=== PATIENT | female | born 1960 | race Caucasian/White ===

== ENCOUNTER 2017-03-05 14:36 | Emergency (ER) | payer SELFPAY ==
[2017-03-05] MEDS ORDERED: Fluorescein Opthalmic Strip ONE (14:51)
[2017-03-05] MEDS ORDERED: Proparacaine 0.5% Opth 15 ML BOT ONE (14:51)
[2017-03-05] MEDS ORDERED: Ibuprofen 800 MG TAB ONE (15:14)
== END 2017-03-05 15:15 | disposition home or self-care (01) ==
LOC: ERS 14:36
DX: S05.02XA Injury of conjunctiva and corneal abrasion without foreign body, left eye, initial encounter (principal); I10 Essential (primary) hypertension; Z79.899 Other long term (current) drug therapy; W22.8XXA Striking against or struck by other objects, initial encounter; Y93.H2 Activity, gardening and landscaping
CPT/HCPCS: 99283

== ENCOUNTER 2020-11-24 14:09 | Inpatient (IN) | payer SELFPAY ==
[~2020-11-24 14:09] MED LIST: Iopamidol-370 76% 500 ML 1 ML ONE; Sodium Chloride 0.9% 1,000 ML BAG ONE
[2020-11-24 14:33] LABS: #Eosinphils 0.1 thou/uL (0.0-0.7); #Monocytes 0.6 thou/uL (0.11-0.59); #Neutrophils 8.2 thou/uL (1.40-6.50); %Basophils 0.2 % (0.0-1.0); %Eosinophils 0.9 % (0.0-10.0); %Lymphocytes 18.4 % (21.0-51.0); %Monocytes 5.1 % (0.0-10.0); %Neutrophils 75.3 % (42.0-75.0); Hemoglobin 13.9 g/dL (12.0-16.0); Mean Corpuscular HGB CONC 34.8 g/dL (32.0-36.0); Mean Corpuscular Hemoglobin 31.1 pg (27.0-31.0); Mean Corpuscular Volume 89.5 fL (78.0-98.0); Mean Platelet Volume 7.3 fL (7.4-10.4); Platelet Count 337 thou/uL (130-400); RBC Distribution Width 12.8 % (11.5-14.5); Red Blood Cell (RBC) Count 4.48 mill/uL (4.20-5.40); White Blood Cell (WBC) Count 10.9 thou/uL (4.8-10.8)
[2020-11-24 14:42] LABS: Prothrombin Time 13.3 sec (12.0-14.7)
[2020-11-24] MEDS ORDERED: Ondansetron PF 4 MG/2 ML Vial ONE ×3 (14:42→22:15)
[2020-11-24] MEDS ORDERED: Morphine 2 MG/ML VIAL ONE ×3 (14:42→17:13)
[2020-11-24 14:50] LABS: PTT 176.9 sec (22.9-36.1)
[2020-11-24 14:53] LABS: ALT (SGPT) 21 U/L (8-55); AST (SGOT) 25 U/L (5-34); Albumin 4.1 g/dL (3.5-5.0); Alkaline Phosphatase 111 U/L (40-110); Anion Gap 12 mmol/L (10-20); BUN (Urea Nitrogen) 10 mg/dL (9.8-20.1); Bilirubin, Total 0.6 mg/dL (0.2-1.2); CK (CPK) 181 U/L (29-168); Calc. Creatinine Clearance 0 mL/min (70-130); Calcium 9.5 mg/dL (7.8-10.44); Carbon Dioxide 28 mmol/L (22-29); Chloride 100 mmol/L (98-107); Globulin 3.2 g/dL (2.4-3.5); Glucose 134 mg/dL (70-105); Lipase 251 U/L (8-78); Potassium 3.9 mmol/L (3.5-5.1); Protein, Total 7.3 g/dL (6.0-8.3); Sodium 136 mmol/L (136-145)
[2020-11-24 15:29] LABS: CKMB 16.3 ng/mL (0-6.6)
[2020-11-24] MEDS ORDERED: Nitroglycerin 50 MG/250 ML BOT 250 ML ONE (15:31)
[2020-11-24] MEDS ORDERED: Metoprolol Tartrate 5 MG/5 ML VIAL ONE (16:23)
[2020-11-24] MEDS ORDERED: Ondansetron PF 4 MG/2 ML Vial IVP PRN (17:36)
[2020-11-24] MEDS ORDERED: Morphine 2 MG/ML VIAL SLOW IVP PRN ×2 (17:46→23:45)
[2020-11-24 19:41] LABS: Troponin I 3.305 ng/mL (< 0.028)
[2020-11-24] MEDS ORDERED: Midazolam HCl 2 mg/2 ml Vial ONE (20:59)
[2020-11-24] MEDS ORDERED: Aggrastat 12.5 MG/250 ML 250 ML ONE (21:42)
[2020-11-24] MEDS ORDERED: TICAGRELOR 90 MG TABLET ONE (21:43)
[2020-11-24] MEDS ORDERED: Atorvastatin Calcium 40 MG TAB PO SCH (22:00)
[2020-11-24] MEDS ORDERED: Nitroglycerin 50 MG/250 ML BOT 250 ML IVPB SCH (22:00)
[2020-11-24] MEDS ORDERED: Heparin 25,000 units/D5W 500 ML IV SCH (22:00)
[2020-11-24] MEDS ORDERED: Heparin 10,000 UNITS/ 10 ML VIAL SLOW IVP SCH (22:00)
[2020-11-24] MEDS: Pantoprazole 40 MG VIAL IVP SCH (23:43)
[2020-11-24] MEDS: Melatonin 3 MG TAB PO PRN (23:43)
[2020-11-24] MEDS ORDERED: Zolpidem Tartrate 5 MG TAB PO PRN (23:45)
[2020-11-24] MEDS ORDERED: Mag-Al 1200 mg/1200 mg/30 ML UDCUP PO PRN (23:45)
[2020-11-24] MEDS ORDERED: Nitroglycerin 0.4 MG TAB (25 Tab Bottle) SL PRN (23:45)
[2020-11-24] MEDS ORDERED: Acetaminophen/Codeine 30-300mg Tablet PO PRN ×2 (23:45)
[2020-11-24] MEDS ORDERED: Morphine 4 MG/ML VIAL SLOW IVP PRN (23:45)
[2020-11-24] MEDS: Acetaminophen 325 MG TAB PO PRN (23:50)
[2020-11-24] MEDS: Aggrastat 12.5 MG/250 ML 12.5 MG in Premix Bag 1 BAG IVPB SCH (23:57)
[2020-11-24] MEDS: Sodium Chloride 0.9% 1,000 ML IV SCH (23:58)
[2020-11-25 00:01] LABS: Troponin I 51.322 ng/mL (< 0.028)
[2020-11-25] MEDS: Sodium Chloride 0.9% 1,000 ML IV SCH ×3 (00:01→09:03)
[2020-11-25 00:04] VITALS: BMI 31.6
[2020-11-25 03:50] LABS: #Lymphocytes 1.7 thou/uL (1.20-3.40); #Monocytes 0.5 thou/uL (0.11-0.59); #Neutrophils 7.2 thou/uL (1.40-6.50); %Eosinophils 0.3 % (0.0-10.0); %Lymphocytes 17.8 % (21.0-51.0); %Monocytes 5.7 % (0.0-10.0); %Neutrophils 76.2 % (42.0-75.0); Hemoglobin 12.1 g/dL (12.0-16.0); Mean Corpuscular HGB CONC 35.3 g/dL (32.0-36.0); Mean Corpuscular Hemoglobin 31.1 pg (27.0-31.0); Mean Corpuscular Volume 88.1 fL (78.0-98.0); Mean Platelet Volume 7.2 fL (7.4-10.4); Platelet Count 310 thou/uL (130-400); RBC Distribution Width 12.6 % (11.5-14.5); Red Blood Cell (RBC) Count 3.89 mill/uL (4.20-5.40); White Blood Cell (WBC) Count 9.4 thou/uL (4.8-10.8)
[2020-11-25 04:06] LABS: Anion Gap 12 mmol/L (10-20); BUN (Urea Nitrogen) 7 mg/dL (9.8-20.1); Calc. Creatinine Clearance 115 mL/min (70-130); Calcium 8.4 mg/dL (7.8-10.44); Carbon Dioxide 22 mmol/L (22-29); Chloride 105 mmol/L (98-107); Glucose 114 mg/dL (70-105); Potassium 3.9 mmol/L (3.5-5.1); Sodium 135 mmol/L (136-145)
[2020-11-25 07:12] LABS: Critical Call Chem Troponin I RESULT DECREASING; Troponin I 37.518 ng/mL (< 0.028)
[2020-11-25] MEDS: Carvedilol 3.125 MG TAB PO SCH ×2 (09:00→20:55)
[2020-11-25] MEDS: Lisinopril 2.5 MG TAB PO SCH (09:00)
[2020-11-25] MEDS: TICAGRELOR 90 MG TABLET PO SCH ×2 (09:01→21:12)
[2020-11-25] MEDS: PARoxetine 20 MG TAB PO SCH (09:01)
[2020-11-25] MEDS: Aspirin Chewable 81 MG TAB PO SCH (09:01)
[2020-11-25] MEDS: Aggrastat 12.5 MG/250 ML 12.5 MG in Premix Bag 1 BAG IVPB SCH (10:24)
[2020-11-25 11:27] LABS: #Eosinphils 0.1 thou/uL (0.0-0.7); #Lymphocytes 1.5 thou/uL (1.20-3.40); #Monocytes 0.7 thou/uL (0.11-0.59); #Neutrophils 6.5 thou/uL (1.40-6.50); %Basophils 0.4 % (0.0-1.0); %Eosinophils 1.3 % (0.0-10.0); %Lymphocytes 16.6 % (21.0-51.0); %Monocytes 8.1 % (0.0-10.0); %Neutrophils 73.6 % (42.0-75.0); Hemoglobin 12.5 g/dL (12.0-16.0); Mean Corpuscular HGB CONC 34.6 g/dL (32.0-36.0); Mean Corpuscular Hemoglobin 30.6 pg (27.0-31.0); Mean Corpuscular Volume 88.5 fL (78.0-98.0); Mean Platelet Volume 7.2 fL (7.4-10.4); Platelet Count 305 thou/uL (130-400); RBC Distribution Width 12.9 % (11.5-14.5); Red Blood Cell (RBC) Count 4.09 mill/uL (4.20-5.40); White Blood Cell (WBC) Count 8.8 thou/uL (4.8-10.8)
[2020-11-25] MEDS: Pantoprazole 40 MG VIAL IVP SCH (20:56)
[2020-11-25] MEDS: Acetaminophen 325 MG TAB PO PRN (20:57)
[2020-11-25] MEDS: Melatonin 3 MG TAB PO PRN (20:58)
[2020-11-25] MEDS ORDERED: Atorvastatin Calcium 40 MG TAB PO SCH ×2 (21:00)
[2020-11-26 04:34] VITALS: TEMP 98.1
[2020-11-26] MEDS: TICAGRELOR 90 MG TABLET PO SCH (08:07)
[2020-11-26] MEDS: Aspirin Chewable 81 MG TAB PO SCH (08:07)
[2020-11-26] MEDS: Lisinopril 2.5 MG TAB PO SCH (08:07)
[2020-11-26 08:08] VITALS: BP 135/85
[2020-11-26] MEDS: PARoxetine 20 MG TAB PO SCH (08:08)
[2020-11-26] MEDS: Carvedilol 3.125 MG TAB PO SCH (08:08)
== END 2020-11-26 13:00 | disposition home or self-care (01) | DRG 247 ==
LOC: ERS 14:09 → SDC/OP 20:33 → CCU 20:34
PROVIDERS: ADMIT Family Medicine; ATTEND Internal Medicine
PROC: 027034Z Dilation of Coronary Artery, One Artery with Drug-eluting Intraluminal Device, Percutaneous Approach (ICD-10-PCS; principal; 2020-11-24)
PROC: 4A023N7 Measurement of Cardiac Sampling and Pressure, Left Heart, Percutaneous Approach (ICD-10-PCS; 2020-11-24)
PROC: B2151ZZ Fluoroscopy of Left Heart using Low Osmolar Contrast (ICD-10-PCS; 2020-11-24)
PROC: B2111ZZ Fluoroscopy of Multiple Coronary Arteries using Low Osmolar Contrast (ICD-10-PCS; 2020-11-24)
DX: I21.4 Non-ST elevation (NSTEMI) myocardial infarction (principal); E87.1 Hypo-osmolality and hyponatremia; I10 Essential (primary) hypertension; E78.00 Pure hypercholesterolemia, unspecified; E78.5 Hyperlipidemia, unspecified; E66.9 Obesity, unspecified; F41.9 Anxiety disorder, unspecified; Z79.899 Other long term (current) drug therapy; Z90.49 Acquired absence of other specified parts of digestive tract; Z87.891 Personal history of nicotine dependence; Z68.31 Body mass index [BMI] 31.0-31.9, adult
CPT/HCPCS: 36415; 71045; 71275; 74174; 80048; 80053; 80061; 82550; 82553; 83690; 84484; 85025; 85347; 85610; 85730; 86850; 86900; 86901; 92928; 92977; 93005; 93010; 93306; 93458; 94760; 96365; 96366; 96375; 96376; 99152; 99153; C9113; C9600; J1644; J2250; J2270; J2405; J3246; J7050; Q9967

== ENCOUNTER 2022-12-10 09:57 | Outpatient (CLI) | payer OTHER | END 2022-12-10 09:58 | disposition home or self-care (01) | LOC: RAD-FRANK 09:57 | PROVIDERS: ATTEND Nurse Practitioner Family | DX: R05.9 Cough, unspecified (principal) | CPT/HCPCS: 71046 ==

== ENCOUNTER 2023-01-10 02:07 | Inpatient (IN) | payer SELFPAY ==
[2023-01-10] MEDS ORDERED: Morphine 4 MG/ML VIAL ONE ×3 (02:27→07:46)
[2023-01-10] MEDS ORDERED: Ondansetron PF 4 MG/2 ML Vial ONE (02:27)
[2023-01-10 03:26] LABS: #Eosinphils 0.1 thou/uL (0.0-0.7); #Monocytes 0.5 thou/uL (0.11-0.59); #Neutrophils 8.4 thou/uL (1.40-6.50); %Basophils 0.2 % (0.0-1.0); %Lymphocytes 11.1 % (21.0-51.0); %Monocytes 4.6 % (0.0-10.0); %Neutrophils 82.7 % (42.0-75.0); Hematocrit 37.7 % (36.0-47.0); Hemoglobin 12.2 g/dL (12.0-16.0); Mean Corpuscular HGB CONC 32.4 g/dL (32.0-36.0); Mean Corpuscular Hemoglobin 29.8 pg (27.0-31.0); Mean Platelet Volume 9.8 fL (7.4-10.4); Platelet Count 228 10x3/uL (130-400); RBC Distribution Width 13.7 % (11.5-14.5); White Blood Cell (WBC) Count 10.1 10x3/uL (4.8-10.8)
[2023-01-10] MEDS ORDERED: Ketorolac Tromethamine 30 MG/ML VIAL ONE (03:35)
[2023-01-10 03:48] LABS: ALT (SGPT) 10 U/L (8-55); AST (SGOT) 14 U/L (5-34); Albumin 4.1 g/dL (3.4-4.8); Alkaline Phosphatase 108 U/L (40-110); Anion Gap 13 mmol/L (10-20); BUN (Urea Nitrogen) 13 mg/dL (9.8-20.1); Bilirubin, Total 0.8 mg/dL (0.2-1.2); Calc. Creatinine Clearance 0 mL/min (70-130); Calcium 9.2 mg/dL (7.8-10.44); Carbon Dioxide 25 mmol/L (23-31); Chloride 104 mmol/L (98-107); Estimated GFR 80; Globulin 2.4 g/dL (2.4-3.5); Glucose 135 mg/dL (80-115); Lipase 29 U/L (8-78); Potassium 3.9 mmol/L (3.5-5.1); Protein, Total 6.5 g/dL (5.8-8.1); Sodium 138 mmol/L (136-145)
[2023-01-10 03:52] LABS: Troponin I Less than 0.010 ng/mL (< 0.028)
[2023-01-10 09:33] VITALS: BMI 29.8
[2023-01-10] MEDS ORDERED: Promethazine HCl 25 MG/ML VIAL IM PRN (09:34)
[2023-01-10] MEDS ORDERED: Dextrose 50% Abboject 50 ML SYRINGE SLOW IVP PRN (09:34)
[2023-01-10] MEDS ORDERED: hydrALAZINE 20 MG/ML VIAL SLOW IVP PRN (09:34)
[2023-01-10] MEDS ORDERED: Dextrose 5% in Water 1,000 ML IV PRN (09:34)
[2023-01-10] MEDS ORDERED: Morphine 4 MG/ML VIAL SLOW IVP PRN (09:34)
[2023-01-10] MEDS ORDERED: Glucagon 1 MG/ML KIT IM PRN (09:34)
[2023-01-10] MEDS ORDERED: Ipratropium/Albuterol 3 ML NEB NEB PRN (09:34)
[2023-01-10] MEDS ORDERED: Ondansetron PF 4 MG/2 ML Vial IVP PRN (09:36)
[2023-01-10] MEDS ORDERED: Polyethylene Glycol 3350 17 GM Packet PO SCH (09:36)
[2023-01-10] MEDS ORDERED: Ondansetron ODT 4 MG TAB PO PRN (09:37)
[2023-01-10] MEDS ORDERED: Acetaminophen 325 MG TAB PO PRN (09:37)
[2023-01-10] MEDS: D5 1/2 NS w/20 mEq KCL 1,000 ML IV SCH ×2 (11:48→20:59)
[2023-01-10] MEDS: HYDROcodone/Acetaminophen 7.5/325 mg Tablet PO PRN (14:11)
[2023-01-10] MEDS ORDERED: Iopamidol 370 76% 100 ML VIAL ONE (14:28)
[2023-01-10] MEDS: Ondansetron PF 4 MG/2 ML Vial IVP PRN (17:35)
[2023-01-10] MEDS: Famotidine 20 MG TAB PO SCH (20:59)
[2023-01-10] MEDS: Famotidine/PF 20 mg/2ml Vial SLOW IVP SCH (21:00)
[2023-01-10] MEDS: Melatonin 3 MG TAB PO PRN (22:25)
[2023-01-11] MEDS: HYDROcodone/Acetaminophen 7.5/325 mg Tablet PO PRN (05:56)
[2023-01-11] MEDS: D5 1/2 NS w/20 mEq KCL 1,000 ML IV SCH ×2 (05:58→18:37)
[2023-01-11] MEDS: Ondansetron PF 4 MG/2 ML Vial IVP PRN (05:58)
[2023-01-11] MEDS: Acetaminophen 325 MG TAB PO PRN (06:18)
[2023-01-11] MEDS ORDERED: Promethazine HCl 25 MG SUPP PR PRN (07:03)
[2023-01-11] MEDS: Ketorolac Tromethamine 30 MG/ML VIAL IVP PRN ×2 (07:15→20:43)
[2023-01-11] MEDS: Promethazine 25 MG TAB PO PRN (07:15)
[2023-01-11] MEDS: diphenhydrAMINE 25 MG CAP PO PRN ×2 (07:25→20:43)
[2023-01-11] MEDS: Famotidine 20 MG TAB PO SCH ×2 (08:37→20:43)
[2023-01-11] MEDS: Polyethylene Glycol 3350 17 GM Packet PO SCH (08:38)
[2023-01-11] MEDS ORDERED: Levothyroxine Sodium 50 MCG TAB PO SCH (08:45)
[2023-01-11] MEDS: Famotidine/PF 20 mg/2ml Vial SLOW IVP SCH ×2 (08:55→21:26)
[2023-01-11] MEDS: Atorvastatin Calcium 40 MG TAB PO SCH (08:56)
[2023-01-11] MEDS: Lisinopril 10 MG TAB PO SCH (08:56)
[2023-01-11] MEDS: Carvedilol 3.125 MG TAB PO SCH ×2 (08:56→20:43)
[2023-01-11] MEDS: PARoxetine 20 MG TAB PO SCH (08:57)
[2023-01-11] MEDS: Melatonin 3 MG TAB PO PRN (20:43)
[2023-01-12] MEDS: HYDROcodone/Acetaminophen 7.5/325 mg Tablet PO PRN ×2 (00:56→14:41)
[2023-01-12] MEDS: Acetaminophen 325 MG TAB PO PRN (00:57)
[2023-01-12] MEDS: D5 1/2 NS w/20 mEq KCL 1,000 ML IV SCH ×2 (01:01→10:19)
[2023-01-12] MEDS: Carvedilol 3.125 MG TAB PO SCH (05:08)
[2023-01-12] MEDS ORDERED: Levothyroxine Sodium 50 MCG TAB PO SCH (06:00)
[2023-01-12] MEDS: Atorvastatin Calcium 40 MG TAB PO SCH (07:10)
[2023-01-12] MEDS: Famotidine 20 MG TAB PO SCH (07:11)
[2023-01-12] MEDS: PARoxetine 20 MG TAB PO SCH (07:11)
[2023-01-12] MEDS: Polyethylene Glycol 3350 17 GM Packet PO SCH (07:11)
[2023-01-12] MEDS: Lisinopril 10 MG TAB PO SCH (07:11)
[2023-01-12] MEDS: Promethazine 25 MG TAB PO PRN (07:36)
[2023-01-12] MEDS: Ketorolac Tromethamine 30 MG/ML VIAL IVP PRN (07:36)
[2023-01-12] MEDS ORDERED: Bupivacaine 0.25% HCL 30 ML VIAL ONE (09:52)
[2023-01-12] MEDS ORDERED: fentaNYL PF 100 MCG/2 ML SYRINGE ONE (10:06)
[2023-01-12] MEDS: Famotidine/PF 20 mg/2ml Vial SLOW IVP SCH (10:17)
[2023-01-12] MEDS ORDERED: Dexamethasone 20 MG/5 ML VIAL ONE (10:18)
[2023-01-12] MEDS ORDERED: NEOSTIGMINE 3 MG/3 ML SYR 3 MG/3 ML SYRINGE ONE (10:18)
[2023-01-12] MEDS ORDERED: Glycopyrrolate 0.2 MG/ML 5 ML SYRINGE ONE (10:18)
[2023-01-12] MEDS ORDERED: PROPOFOL 200 MG/20 ML VIAL ONE (10:18)
[2023-01-12] MEDS ORDERED: Ondansetron PF 4 MG/2 ML Vial ONE (10:18)
[2023-01-12] MEDS ORDERED: Rocuronium Bromide 10 MG/ML (10ML VIAL) ONE (10:18)
[2023-01-12] MEDS ORDERED: EPINEPHrine 1 MG/ML AMP ONE (10:24)
[2023-01-12] MEDS ORDERED: SUGAMMADEX SODIUM 200 MG/2 ML VIAL ONE (11:12)
[2023-01-12] MEDS ORDERED: Ipratropium/Albuterol 3 ML NEB ONE (11:22)
[2023-01-12] MEDS ORDERED: Ondansetron HCl/PF 4 MG/2 ML Vial IVP PRN (11:24)
[2023-01-12] MEDS ORDERED: Promethazine HCl 25 MG/ML VIAL IM PRN (11:24)
[2023-01-12] MEDS ORDERED: Ipratropium/Albuterol 3 ML NEB NEB SCH (11:30)
[2023-01-12] MEDS ORDERED: fentaNYL 50 mcg/mL 1 mL Vial ONE (11:39)
[2023-01-12 15:35] VITALS: BP 173/78; TEMP 98.4
== END 2023-01-12 17:10 | disposition home or self-care (01) | DRG 355 ==
LOC: ERS 02:07 → ERHOLD 07:24 → SURG A 09:10
PROVIDERS: ADMIT Surgery; ATTEND Surgery
PROC: 3E033XZ Introduction of Vasopressor into Peripheral Vein, Percutaneous Approach (ICD-10-PCS; principal; 2023-01-12)
PROC: 0WUF4JZ Supplement Abdominal Wall with Synthetic Substitute, Percutaneous Endoscopic Approach (ICD-10-PCS; 2023-01-12)
PROC: 8E0W4CZ Robotic Assisted Procedure of Trunk Region, Percutaneous Endoscopic Approach (ICD-10-PCS; 2023-01-12)
DX: K43.9 Ventral hernia without obstruction or gangrene (principal); I25.10 Atherosclerotic heart disease of native coronary artery without angina pectoris; I25.2 Old myocardial infarction; I10 Essential (primary) hypertension; F39 Unspecified mood [affective] disorder; G43.909 Migraine, unspecified, not intractable, without status migrainosus; E03.9 Hypothyroidism, unspecified; K45.8 Other specified abdominal hernia without obstruction or gangrene; Z90.49 Acquired absence of other specified parts of digestive tract; Z98.891 History of uterine scar from previous surgery; Z87.891 Personal history of nicotine dependence
CPT/HCPCS: 36415; 71045; 74177; 80053; 83605; 83690; 84484; 85025; 93005; 96374; 96375; 96376; C1781; J0171; J1100; J1650; J1885; J2270; J2405; J2704; J3010; J3480; J7620; Q0169; Q9967; S0020

== ENCOUNTER 2024-05-21 17:44 | Emergency (ER) | payer SELFPAY ==
[2024-05-21] MEDS ORDERED: Ondansetron ODT 4 MG TAB ONE (18:05)
[2024-05-21] MEDS ORDERED: predniSONE 20 MG TAB ONE (18:10)
== END 2024-05-21 19:10 | disposition home or self-care (01) ==
LOC: ERS 17:44
DX: J18.9 Pneumonia, unspecified organism (principal); I10 Essential (primary) hypertension; E78.5 Hyperlipidemia, unspecified; I25.2 Old myocardial infarction; Z79.02 Long term (current) use of antithrombotics/antiplatelets; Z79.899 Other long term (current) drug therapy; Z87.891 Personal history of nicotine dependence
CPT/HCPCS: 71045; 87428; J7512; Q0162